=== PATIENT | female | born 1950 | race Caucasian/White ===

== ENCOUNTER 2023-04-01 08:10 | Day surgery (SDC) | payer MEDICARE ==
[2023-03-28 15:56] VITALS: BMI 26.6
[2023-04-01] MEDS ORDERED: PHENYLEPHRINE-NS 100 MCG/ML 10 ML SYRINGE ONE (08:56)
[2023-04-01] MEDS ORDERED: PROPOFOL 20 ML ONE (08:56)
[2023-04-01] MEDS ORDERED: Lidocaine 1% PF 5 ML VIAL ONE (08:56)
[2023-04-01] MEDS ORDERED: Succinylcholine 200 MG/10 ml SYRINGE FS ONE (08:56)
[2023-04-01] MEDS ORDERED: fentaNYL 50 mcg/mL 1 mL Vial ONE ×2 (08:56→10:04)
[2023-04-01] MEDS ORDERED: Metoprolol Tartrate 5 MG/5 ML VIAL ONE (08:58)
[2023-04-01] MEDS ORDERED: CEFAZOLIN 1 GM VIAL ONE (09:03)
[2023-04-01] MEDS ORDERED: Lidocaine 1% w/Epinephrine 1:100K 20 ML VIAL ONE (09:04)
[2023-04-01] MEDS ORDERED: Rocuronium Bromide 10 MG/ML (10ML VIAL) ONE (09:58)
[2023-04-01] MEDS ORDERED: ePHEDrine Sulfate 50 MG/10 ML VIAL ONE (10:01)
[2023-04-01] MEDS ORDERED: Dexamethasone 4 mg/ml Vial ONE (10:13)
[2023-04-01] MEDS ORDERED: Ondansetron PF 4 MG/2 ML Vial ONE (10:13)
== END 2023-04-01 12:35 | disposition home or self-care (01) ==
LOC: CSHSDC 08:10
PROVIDERS: ATTEND Otolaryngology Plastic Surgery within the Head & Neck
PROC: 0GTP0ZZ Resection of Left Inferior Parathyroid Gland, Open Approach (ICD-10-PCS; principal; 2023-04-01)
DX: E21.3 Hyperparathyroidism, unspecified (principal); E04.1 Nontoxic single thyroid nodule; D35.1 Benign neoplasm of parathyroid gland; Z79.899 Other long term (current) drug therapy; I12.9 Hypertensive chronic kidney disease with stage 1 through stage 4 chronic kidney disease, or unspecified chronic kidney disease; N18.9 Chronic kidney disease, unspecified; F41.9 Anxiety disorder, unspecified; F32.A Depression, unspecified; Z88.1 Allergy status to other antibiotic agents; Z88.2 Allergy status to sulfonamides; E78.00 Pure hypercholesterolemia, unspecified; Z85.3 Personal history of malignant neoplasm of breast; Z90.13 Acquired absence of bilateral breasts and nipples
CPT/HCPCS: 60500; 83970; J3010; 88305; 88307; 88331; J0690; J1100; J2405; J2704